=== PATIENT | female | born 1955 | race Caucasian/White ===

== ENCOUNTER 2019-01-22 20:17 | Emergency (ER) | payer BC ==
--- NOTE | 2019-01-22 21:08 | RAD ---
EXAM: 3 views of the right shoulder HISTORY: Shoulder pain after dislocation one hour prior to arrival COMPARISON: None FINDINGS: There is anterior dislocation of the glenohumeral joint. There is a fracture of the greater tuberosity without complete fracture through the humeral neck. There may be a fracture fragment along the medial of the glenohumeral joint which could represent a fracture emanating from the anteri or glenoid. Mild glenohumeral degenerative changes are present. No soft tissue swelling is seen. The visualized thorax is unremarkable. IMPRESSION: Fracture dislocation of the right glenohumeral joint
[2019-01-22] MEDS ORDERED: Fentanyl 100 MCG/2 ML VIAL ONE ×2 (21:10→22:46)
[2019-01-22 21:17] LABS: #Basophils 0.1 thou/uL (0.0-0.2); #Eosinphils 0.2 thou/uL (0.0-0.7); #Lymphocytes 2.1 thou/uL (1.20-3.40); #Monocytes 0.6 thou/uL (0.11-0.59); #Neutrophils 5.6 thou/uL (1.40-6.50); %Basophils 1.2 % (0.0-1.0); %Eosinophils 2.3 % (0.0-10.0); %Lymphocytes 24.2 % (21.0-51.0); %Monocytes 7.5 % (0.0-10.0); %Neutrophils 64.8 % (42.0-75.0); Hemoglobin 14.3 g/dL (12.0-16.0); Mean Corpuscular HGB CONC 33.4 g/dL (32.0-36.0); Mean Corpuscular Hemoglobin 29.1 pg (27.0-31.0); Mean Corpuscular Volume 87.3 fL (78.0-98.0); Mean Platelet Volume 8.6 fL (7.4-10.4); Platelet Count 251 thou/uL (130-400); RBC Distribution Width 11.7 % (11.5-14.5); Red Blood Cell (RBC) Count 4.93 mill/uL (4.20-5.40); White Blood Cell (WBC) Count 8.6 thou/uL (4.8-10.8)
[2019-01-22 21:23] LABS: PTT 26.1 SEC (22.9-36.1); Prothrombin Time 12.9 SEC (12.0-14.7)
[2019-01-22] MEDS ORDERED: PROPOFOL 20 ML ONE ×2 (21:25→22:20)
[2019-01-22 21:40] LABS: ALT (SGPT) 27 U/L (8-55); AST (SGOT) 23 U/L (5-34); Albumin 4.4 g/dL (3.4-4.8); Alkaline Phosphatase 145 U/L (40-150); Anion Gap 12 mmol/L (10-20); BUN (Urea Nitrogen) 25 mg/dL (9.8-20.1); Bilirubin, Total 0.5 mg/dL (0.2-1.2); Calc. Creatinine Clearance 0 mL/min (70-130); Calcium 9.6 mg/dL (7.8-10.44); Carbon Dioxide 27 mmol/L (23-31); Chloride 106 mmol/L (98-107); Estimated GFR-MDRD 60; Globulin 3.3 g/dL (2.4-3.5); Glucose 114 mg/dL (80-115); Potassium 3.9 mmol/L (3.5-5.1); Protein, Total 7.7 g/dL (6.0-8.3); Sodium 141 mmol/L (136-145)
--- NOTE | 2019-01-22 22:51 | RAD ---
EXAM: Single view of the right shoulder HISTORY: Reduction of shoulder dislocation COMPARISON: 01/22/2019 FINDINGS: There is been interval reduction of the previously seen shoulder dislocation. There is a sm all fracture fragment along the anterior aspect of the glenoid. There is a fracture of the greater tuberosity of the humerus. IMPRESSION: Reduction of shoulder dislocation
[2019-01-22] MEDS ORDERED: Ketorolac Tromethamine 30 MG/ML VIAL ONE (23:24)
[2019-01-22] MEDS ORDERED: HYDROcodone/Acetaminophen 10/325 mg Tablet ONE (23:26)
== END 2019-01-22 23:39 | disposition home or self-care (01) ==
LOC: ERS 20:17
DX: S42.251A Displaced fracture of greater tuberosity of right humerus, initial encounter for closed fracture (principal); E03.9 Hypothyroidism, unspecified; Z79.899 Other long term (current) drug therapy; W17.89XA Other fall from one level to another, initial encounter
CPT/HCPCS: 23650; 36415; 80053; 85025; 85610; 85730; 86850; 86900; 86901; 96374; 96375; 96376; 99156; J1885; J2704; J3010

== ENCOUNTER 2021-11-14 13:42 | Outpatient (CLI) | payer MEDICARE, BC | END 2021-11-14 13:43 | disposition home or self-care (01) | LOC: BICRAD 13:42 | PROVIDERS: ATTEND Nurse Practitioner Family | DX: U09.9 Post COVID-19 condition, unspecified (principal); R05.3 Chronic cough | CPT/HCPCS: 71046 ==